=== PATIENT | female | born 1935 | race Caucasian/White ===

== ENCOUNTER 2017-01-16 09:24 | Day surgery (SDC) | payer MEDICARE, BC ==
[~2017-01-16 09:24] MED LIST: Acetaminophen TAB* 325 MG PO PRN; Buffered Lidocaine 1% SYR 3ML* 3 ML/SYR SYRINGE INTRADERM ONE; Cyclopentolate 1% OPTH.SOL* 2 ML BTL ONE; Flurbiprofen 0.03% OPTH.SOL* 2.5 ML BTL ONE; Hyaluronidase OVINE* 200 UNIT/ML ML SUBCUT ONE; Lidocaine 1% MPF* 2 ML VIAL ONE; Lidocaine 2% EPI 1:200000 MPF* 20 ML VIAL ONE; Lidocaine 2% PF* 10 ML AMP ONE; Neomycin/Polymy/Dex OPTH.SUSP* MAXITROL 0.1% 5 ML ONE; Phenylephrine 2.5% OPTH.SOL* 2 ML BTL ONE; Povidone Iodine 5% OPTH* 30 ML BTL ONE; Proparacaine 0.5% OPHTH.SOL* 15 ML BTL ONE; Sodium Bicarbonate 8.4%* 50 ML SYRINGE ONE; acetaZOLAMIDE TAB* 250 MG ONE
[2017-01-16] MEDS ORDERED: Acetylcholine 1:100 OPTH* OPHTH.SOLN ONE (11:53)
[2017-01-16] MEDS ORDERED: Triamcinolone OPHTH Inj (NF) 40 MG/ML 1 ML VIAL *** OPHTH USE ONLY ONE (11:53)
[2017-01-16] MEDS ORDERED: Midazolam* 1 MG/ML 2 ML VIAL (2 MG) ONE (12:06)
[2017-01-16] MEDS ORDERED: fentaNYL* 50 MCG/ML 2 ML VIAL (100 MCG VIAL) ONE (12:12)
[2017-01-16] MEDS ORDERED: Propofol* 10 MG/ML 20 ML BTL IV PUSH ONE (12:18)
[2017-01-16] MEDS ORDERED: BSS OPTH.SOL* BTL ONE (12:43)
[2017-01-16 13:44] VITALS: BP 133/67
--- NOTE | 2017-01-17 00:42 | OP ---
DATE OF OPERATION: 01/16/17 - [facility] DATE OF : 39 SURGEON: Gary Gastelum MD ANESTHESIA: Local with MAC. PREOPERATIVE DIAGNOSIS: Dislocated right intraocular lens. POSTOPERATIVE DIAGNOSIS: Dislocated right intraocular lens OPERATIVE PROCEDURE: Refixation, intraocular lens and anterior vitrectomy. COMPLICATIONS: None. DESCRIPTION OF PROCEDURE: The patient was given retrobulbar in the operating room, 50:50 mixture of 0.75 Marcaine and 2% lidocaine with epi, 4 cc were given in the muscle cone without difficulty. The eye was prepped and draped in the usual sterile fashion. Lid speculum was placed. The eye was inspected. The lens was covered in pseudo-exfoliation. It was found to be freely mobile in the posterior chamber and partially tilted posteriorly. Paracentesis was made at the 10 o'clock position with the 75 blade, then a nasal fornix-based conjunctival peritomy was performed with Nancy scissors. Hemostasis was achieved with Eraser. Then, a fornix-based half scleral thickness flap created starting approximately 2 mm posterior to the lumbus and ending up a little bit more than 4 mm posterior to the lumbus that was made with the [place] blade. A 25-gauge needle was placed 3.5 mm posterior to the lumbus into the vitreous cavity through underneath the scleral flap, placed posterior to the capsular tension ring and pushed up through the capsule anterior to the intraocular lens. Two clear corneal incisions were made, one at the 9 o'clock, one at the 3 o'clock position with a 2.2 mm keratome. A 9-0 Prolene suture was then docked into this needle and then retracted out of the sclera. Again, the other arm of that double-armed suture was placed in the same location; however, this time it was anterior to the capsular tension ring in the lens completely and again the other arm of the double-armed Prolene was docked and pulled through the suture. The suture was then closed underneath the flap, tied underneath the flap to the appropriate tension to the center of the lens. The procedure was repeated at the 9 o'clock position temporarily without any difficult. Triesence was diluted in 1:10 in BSS and instilled into the anterior chamber. Miochol was instilled into the anterior chamber, then a thorough anterior vitrectomy performed. Eye was refilled with balanced salt solution. Scleral flaps were closed with 10-0 nylon interrupted suture as well as the conjunctiva. After the surgery, topical Maxitrol given and the eye was patched. [id number]/[facility] #: [id number] CHRISTIANO
== END 2017-01-16 13:29 | disposition home or self-care (01) ==
LOC: OREAST 09:24
PROVIDERS: ATTEND Specialist
DX: T85.22XA Displacement of intraocular lens, initial encounter (principal); Y83.1 Surgical operation with implant of artificial internal device as the cause of abnormal reaction of the patient, or of later complication, without mention of misadventure at the time of the procedure; H40.1421 Capsular glaucoma with pseudoexfoliation of lens, left eye, mild stage; H40.1414 Capsular glaucoma with pseudoexfoliation of lens, right eye, indeterminate stage; I25.110 Atherosclerotic heart disease of native coronary artery with unstable angina pectoris; I10 Essential (primary) hypertension; Z95.5 Presence of coronary angioplasty implant and graft; Z87.891 Personal history of nicotine dependence; J45.990 Exercise induced bronchospasm
CPT/HCPCS: A9270-GY; J2001; J2250; J2704; J3010